=== PATIENT | male | born 1995 | race Caucasian/White ===

== ENCOUNTER 2020-08-30 22:33 | Emergency (ER) | payer SELFPAY ==
[2020-08-30 22:41] VITALS: BP 141/93; PULSE 104; RESP 18; TEMP 36.7; O2SAT 97; BMI 27.2
--- NOTE | 2020-08-30 23:06 | W.ED.PSYCH ---
HPI - Psych General: Chief Complaint: Psychiatric Symptoms Stated Complaint: si Time Seen by Provider: 08/30/20 22:34 Source: patient Mode of arrival: ambulatory Limitations: no limitations History of Present Illness: HPI Narrative: A 5-year-old male has a history of schizophrenia supposed to be on Abilify. He states he quit taking his medicine months ago and is having increasing hallucinations. He states he just been feeling extremely paranoid and is having auditory hallucinations believe people are out to get him. He denies any suicidal homicidal ideations. He voluntarily wants to be admitted. Associated symptoms: Reports auditory hallucinations Review of Systems Const: Denies: fever(s), chills, body aches or change in appetite Eyes: Denies: blurry vision or eye discomfort ENMT: Denies: throat pain or dental pain Card: Denies: chest pain Resp: Denies: dyspnea GI: Denies: abdominal pain, nausea, vomiting or diarrhea : Denies: dysuria Musc: Denies: neck pain or back pain Skin/Breast: Denies: rash Neuro: Denies: headache(s) Psych: Reports: auditory hallucinations Brian/Lymph: Denies: easy bruising All/Imm: Denies: urticaria Physical Exam Const: COMMON NORMALS: no acute distress, patient oriented x3 and healthy appearing HENMT: COMMON NORMALS: normocephalic and atraumatic HEAD & SCALP: normocephalic and atraumatic Eye: COMMON NORMALS: Equal, round and reactive pupils present and EOMs intact bilaterally PUPIL: Yes Equal, round and reactive pupils present Neck/C-Spine: COMMON NORMALS: full ROM and supple Chest: COMMONS NORMALS: normal inspection of the chest and normal palpation of entire chest wall Resp: COMMON NORMALS: normal respiratory effort, No retractions, No use of accessory muscles and clear to auscultation bilaterally AUSCULTATION: clear to auscultation bilaterally Cardio: COMMON NORMALS: regular rate, regular rhythm and No murmurs present (Cardio) RATE: regular rate RHYTHM: regular rhythm GI: COMMON NORMALS: Normal to inspection, nondistended, normoactive bowel sounds present, Soft to palpation, non-tender and no masses PALPATION: Yes Soft to palpation Extremity: COMMON NORMALS: normal to inspection and full ROM Neuro: COMMON NORMALS: patient oriented x3, moves all extremities and no focal motor deficits Psych: COMMON NORMALS: mental status grossly normal and cooperative MOOD & AFFECT: Yes anxious THOUGHT CONTENT: Yes Hallucination(s) present Skin: COMMON NORMALS: no rashes or lesions noted and no wounds GENERAL SKIN EXAM: no rashes or lesions noted Course Vital Signs: Vital signs: Vital Signs Temperature 98.0 F 08/30/20 22:41 Pulse Rate 93 08/30/20 23:14 Respiratory Rate 16 08/30/20 23:14 Blood Pressure 116/94 08/30/20 23:14 Pulse Oximetry 97 08/30/20 23:14 MDM - Psych MDM Narrative: Medical decision making narrative: Patient presents with hallucinations. I spoke to psychiatrist Dr. Tabor and will admit. Patient's voluntary and is medically cleared. He has been stable while here. Lab Data: Labs: Lab Results 08/30/20 08/30/20 08/30/20 Range/Units 23:00 23:00 23:15 WBC 11.2 H (4.0-10.0) 10^3/ uL RBC 5.16 (4.1-5.3) 10^6/u L Hgb 15.3 (11.7-16.6) g/dL Hct 46.6 (42.0-52.0) % MCV 90.3 (80-94) fL MCH 29.7 (28.0-34.0) pg MCHC 32.8 (30.0-36.0) g/dL RDW 12.3 (12.1-15.1) % Plt Count 223 (130-400) 10^3/c mm MPV 10.3 (7.4-10.4) fL Neut % (Auto) 75.4 % Lymph % (Auto) 17.9 % Teton % (Auto) 5.3 % Eos % (Auto) 0.7 % Baso % (Auto) 0.4 % Neut # (Auto) 8.48 H (1.8-7.7) 10^3/u L Lymph # (Auto) 2.0 (0.8-4.8) 10^3/u L Teton # (Auto) 0.6 (0.2-0.9) 10^3/u L Eos # (Auto) 0.1 (0.0-0.8) 10^3/u L Baso # (Auto) 0.0 (0.0-0.1) 10^3/u L Nucleated RBC % (a uto) 0 % Nucleated RBCs # 0.0 /100WBC Sodium 142 (136-145) mmol/L Potassium 3.6 (3.5-5.1) mmol/L Chloride 104 (98-107) mmol/L Carbon Dioxide 28 (22-29) mmol/L Anion Gap 13.6 (5-19) BUN 14 (6-20) mg/dL Creatinine 0.8 (0.7-1.2) mg/dL GFR Calculation 116.0 (90-130) mL/min Glucose 98 (65-115) mg/dL Calculated Osmolal ity 294 (285-295) mOsm/k g Calcium 9.2 (8.5-10.5) mg/dL Total Bilirubin 0.3 (0.15-1.2) mg/dL AST 14 (0-40) U/L ALT 17 (0-41) U/L Alkaline Phosphata se 63 (40-130) IU/L Total Protein 7.0 (6.6-8.7) g/dL Albumin 4.4 (3.5-5.2) g/dL Globulin 2.6 (1.3-4.6) g/dL Salicylates < 0.3 L (3-10) mg/dL Urine Opiates Scre en Negative (Negative) ng/mL Acetaminophen < 5.0 L (10-30) ug/mL Ur Barbiturates Sc reen Negative (Negative) ng/mL Ur Phencyclidine S crn Negative (Negative) ng/mL Ur Amphetamines Sc reen Positive H (Negative) ng/mL U Benzodiazepines Scrn Positive H (Negative) ng/mL Urine Cocaine Scre en Negative (Negative) ng/mL U Marijuana (THC) Screen Positive H (Negative) ng/mL Ethyl Alcohol < 10 (0-10) mg/dL Discharge Plan Discharge Patient Disposition: Admitted As Inpatient Admit Provider: Tevin Tabor Clinical Impression: Chronic schizophrenia, Hallucinations Condition: Stable Coding Level of Care Code ED Box Machine Operator for Salomon Fwd Exam Comprehensive
[2020-08-30] MEDS: LORazepam 2 mg Tablet PO (23:11)
[2020-08-30 23:14] VITALS: BP 116/94; PULSE 93; RESP 16; O2SAT 97
[2020-08-30 23:14] LABS: Basophils % 0.4 %; Eosinophils # 0.1 10^3/uL (0.0-0.8); Eosinophils % 0.7 %; Hematocrit 46.6 % (42.0-52.0); Hemoglobin 15.3 g/dL (11.7-16.6); Lymphocytes % 17.9 %; Mean Corpuscular HGB Conc 32.8 g/dL (30.0-36.0); Mean Corpuscular Hemoglobin 29.7 pg (28.0-34.0); Mean Corpuscular Volume 90.3 fL (80-94); Mean Platelet Volume 10.3 fL (7.4-10.4); Monocytes # 0.6 10^3/uL (0.2-0.9); Monocytes % 5.3 %; Neutrophils # 8.48 10^3/uL (1.8-7.7); Neutrophils % 75.4 %; Nucleated Red Blood Cells % 0 %; Platelet Count 223 10^3/cmm (130-400); Red Blood Count 5.16 10^6/uL (4.1-5.3); Red Cell Distribution Width 12.3 % (12.1-15.1); White Blood Count 11.2 10^3/uL (4.0-10.0)
[2020-08-30 23:33] LABS: Amphetamines Screen Urine Positive (Negative); Barbiturates Screen Urine Negative (Negative); Benzodiazepines Screen Urine Positive (Negative); Cocaine Screen Urine Negative (Negative); Opiate Screen Urine Negative (Negative); PCP Screen Urine Negative (Negative); THC Screen Urine Positive (Negative)
[2020-08-30 23:39] LABS: Alanine Aminotransferase 17 U/L (0-41); Albumin Level 4.4 g/dL (3.5-5.2); Alkaline Phosphatase 63 IU/L (40-130); Anion Gap 13.6 (5-19); Aspartate Amino Transferase 14 U/L (0-40); Blood Urea Nitrogen 14 mg/dL (6-20); Calcium 9.2 mg/dL (8.5-10.5); Carbon Dioxide 28 mmol/L (22-29); Chloride 104 mmol/L (98-107); Globulin 2.6 g/dL (1.3-4.6); Glucose 98 mg/dL (65-115); Osmolality Calculated 294 mOsm/kg (285-295); Potassium 3.6 mmol/L (3.5-5.1); Sodium 142 mmol/L (136-145); Total Bilirubin 0.3 mg/dL (0.15-1.2)
[2020-08-30 23:40] LABS: Acetaminophen < 5.0 ug/mL (10-30); Alcohol Level < 10 mg/dL (0-10); Salicylate < 0.3 mg/dL (3-10)
[2020-08-31] MEDS: LORazepam 2 mg Tablet PO (00:34)
--- NOTE | 2020-08-31 02:33 | PC.NURSE ---
pt refusing IM meds stating he does not do needles . Dr notified. order changed to PO meds
--- NOTE | 2020-08-31 08:02 | PC.NURSE ---
VICKIE: Was notified around 0300 that when security was taking the patient to the unit for admission he got up and ran when they got to the doors outside of [facility] saying that he did not want to stay. The patient went out to the parking lot of the ER. When rounding found the patient sitting in a wheelchair just outside the ER entrance doors.
== END 2020-08-31 00:23 | disposition home or self-care (01) ==
PROVIDERS: Emergency Provider Emergency Medicine
DX: F20.9 Schizophrenia, unspecified (principal); R44.3 Hallucinations, unspecified
CPT/HCPCS: 80053; 80306; 80307; 85025; 96372; 99284; J1630; J2060

== ENCOUNTER 2020-08-31 07:55 | Inpatient (IN) | payer SELFPAY ==
[2020-08-31 07:55] VITALS: BP 118/100; PULSE 117; RESP 16; TEMP 36.8; O2SAT 97; BMI 27.9
--- NOTE | 2020-08-31 08:22 | ED_ITS ---
HPI - Psych General: Chief Complaint: Psychiatric Symptoms Stated Complaint: PSYCH EVAL Time Seen by Provider: 08/31/20 07:56 History of Present Illness: HPI Narrative: 25-year-old male returns to the emergency room he was here earlier today with paranoid schizophrenia he had agreed to be admitted on as a voluntary and ended up leaving AMA. PD made contact with him this morning he was still expressing paranoid delusions prosecutorial thoughts. He was brought in for evaluation. He is guarded as far as answering questions. He stated he needed to get a hold of the [facility] or the FBI to make sure his family is okay. He states he is a target of organized crime. When I asked him to give me him more specifics about what is going on he says he cannot discuss it with me. He states that last night staff told him that we can give him an overload of acid. He does admit to not having taken his regular antipsychotic medications regularly but is willing to restart them. On his lab work last night he tested positive for marijuana methamphetamines. MD complaint: other (Acute paranoid psychosis) Onset (ago): hour(s) Duration: constant History of same: Yes Relieving factors: medication Exacerbating factors: drug use Context: recent drug abuse and not taking psychiatric medications Associated psychiatric symptoms: racing thoughts and delusions Associated symptoms: Reports auditory hallucinations, delusions and racing thoughts; Deny visual hallucinations, depression, homicidal ideation or suicidal ideation Treatments prior to arrival: physical restraints (Patient arrives in handcuffs with the police department.) Review of Systems Const: Denies: fever(s), chills, body aches, change in appetite, fatigue or malaise Card: Denies: chest pain, edema, dyspnea on exertion or orthopnea Resp: Denies: dyspnea, productive cough or non-productive cough GI: Denies: abdominal pain, nausea, vomiting, hematemesis, coffee ground emesis, diarrhea, constipation, bloating, hematochezia or melena : Denies: flank pain, dysuria, urinary frequency or urinary urgency Psych: Reports: auditory hallucinations; Denies: depression, visual hallucinations, suicidal ideation or homicidal ideation Physical Exam Const: COMMON NORMALS: no acute distress GENERAL APPEARANCE: comfortable ORIENTATION/CONSCIOUSNESS: Yes awake HENMT: COMMON NORMALS: hearing grossly normal bilaterally Eye: COMMON NORMALS: Equal, round and reactive pupils present, EOMs intact arsh aterally, conjunctivae normal and no scleral icterus CONJUNCTIVA: Yes conjunctivae normal PUPIL: Yes Equal, round and reactive pupils present Neck/C-Spine: COMMON NORMALS: no JVD Resp: COMMON NORMALS: normal respiratory effort, No retractions, No use of accessory muscles and clear to auscultation bilaterally AUSCULTATION: clear to auscultation bilaterally Cardio: COMMON NORMALS: no JVD, regular rate, regular rhythm and No murmurs present (Cardio) RATE: regular rate RHYTHM: regular rhythm Psych: THOUGHT CONTENT: Yes delusions Course Vital Signs: Vital signs: Vital Signs Temperature 98.2 F 08/31/20 07:55 Pulse Rate 117 H 08/31/20 07:55 Respiratory Rate 16 08/31/20 07:55 Blood Pressure 118/100 08/31/20 07:55 Pulse Oximetry 97 08/31/20 07:55 MDM - Psych MDM Narrative: Medical decision making narrative: Patient still having paranoid schizophrenic thoughts with delusional per sectorial thoughts. He has a known history of's schizophrenia and is no longer taking his medications. In his current state he represents a danger to himself. I discussed with Dr. Tabor. He recently had lab work done just a few hours ago there is no need for repeating it at this time we will go ahead and admit him place him on a 96- hour hold Dr. Tabor concurs orders have been written. Discharge Plan Discharge Patient Disposition: Admitted As Inpatient Admit Provider: Tevin Tabor Clinical Impression: Acute psychosis, Drug-induced psychotic disorder, Chronic schizophrenia Condition: Stable Coding Level of Care Code ED Furnace Utility Operator for Salomon Swanson
[2020-08-31] MEDS: LORazepam 2 mg Tablet PO ×2 (08:37→09:39)
[2020-08-31 08:50] VITALS: BMI 27.9
[2020-08-31 09:09] VITALS: BP 138/86; PULSE 106; RESP 18; TEMP 37.1; O2SAT 97
--- NOTE | 2020-08-31 09:35 | PC.NURSE ---
Patient is a pleasant 25 year old male that presents to the [facility] unit as a direct admit from the emergency department. Patient was brought in by local law enforcement. Patient states that he was kidnapped by local police departments and that he has people after him and that his family is in danger. In the emergency department patient was positive meth, amph, along with THC. Patient has been pleasant during admission process and has requested a phone call. No skin issues noted. Patient denies any past mental health problems along with any mental health inpatient stays.
[2020-08-31 14:00] VITALS: RESP 16
--- NOTE | 2020-08-31 20:00 | PC.NURSE ---
bEHAVIOR PT STAYED IN HIS ROOM, COOPERATIVE WITH STAFF, V/S ARE WNL, DENIES SI/HI-HOWEVER, IS PARANOID, STATES, PEOPLE ARE GOING TO GET ME. pT DENIES PAIN, ATE A SMALL SNACK, AND RETURNED TO SLEEP. AVOIDS TOUCH, ANSWERS QUESTIONS FOR NURSE BUT DOES NOT VOLUNTEER ANY ADDITONAL INFORMATION AT THIS TIME. pT STATED, JODY BEEN KIDNAPPED, THE [place]ARTEL, [facility], SOMEONE ALREADY HAS ME. REORIENTED PT TO TIME AND SITUATION, HE REMAINED CALM, SMILING.
[2020-08-31 20:20] VITALS: RESP 15
[2020-09-01 06:00] VITALS: RESP 16
--- NOTE | 2020-09-01 07:52 | PM.NHP ---
Providers/Chief Complaint Admitting Physician: Tevin Tabor MD Chief Complaint: PSYCH EVAL HPI [facility] History of Present Illness Reilly Guthrie is a 25 year old male who presented to the emergency department with the following report: Chief Complaint: Psychiatric Symptoms Stated Complaint: PSYCH EVAL Time Seen by Provider: 08/31/20 07:56 History of Present Illness: HPI Narrative: 25-year-old male returns to the emergency room he was here earlier today with paranoid schizophrenia he had agreed to be admitted on as a voluntary and ended up leaving A. PD made contact with him this morning he was still expressing paranoid delusions prosecutorial thoughts. He was brought in for evaluation. He is guarded as far as answering questions. He stated he needed to get a hold of the [facility] or the FBI to make sure his family is okay. He states he is a target of organized crime. When I asked him to give me him more specifics about what is going on he says he cannot discuss it with me. He states that last night staff told him that we can give him an overload of acid. He does admit to not having taken his regular antipsychotic medications regularly but is willing to restart them. On his lab work last night he tested positive for marijuana methamphetamines. complaint: other (Acute paranoid psychosis) Onset (ago): hour(s) Duration: constant History of same: Yes Relieving factors: medication Exacerbating factors: drug use Context: recent drug abuse and not taking psychiatric medications Associated psychiatric symptoms: racing thoughts and delusions Associated symptoms: Reports auditory hallucinations, delusions and racing thoughts; Deny visual hallucinations, depression, homicidal ideation or suicidal ideation Treatments prior to arrival: physical restraints (Patient arrives in handcuffs with the police department. He was admitted to the neuropsychiatric unit for definitive treatment of those issues. Reilly presents today reporting that he was in inpatient psychiatric facilities a few times a kid and the last time was a couple years ago. He reports he did do some outpatient services and another place and was very upset recently. He reports he smokes a pack of cigarettes a day and at times has too much alcohol and other times does not drink at all. He reports he has had marijuana for a while denies any other illicit drug use reports he is prescribed benzodiazepines. Denies going to rehab or having a DUI. He reports he is never tried to kill himself. He reports that he is here because it makes other people feel safe by making him feel that he and they are safe. He then talked about how they would be safe was about fear he would expose their secrets and then when asked to be clear about that he reports that he should avoid speaking about it. He expressed concerns about how this telegraphic typewriter mechanic would interpret what he had to say and he was able to articulate that one might think that what he has to say is paranoid. We discussed his medication and he was very focused on getting his Xanax and we agreed to getting that would avoid him having any withdrawal symptoms. He reports that he understood that we did not have Adderall and he could not at this point get somebody to bring it in. We discussed the risk benefits and alternatives of increasing his Abilify to 50 mg and he understood agreed proceed as happened in his note. Psychiatric history: As above Substance abuse history: As above. Family history: Patient denies mental health or addiction issues on either side of the family and denies suicide attempts or completions in the family. Developmental history: There were no problems with the , or delivery, learned to walk and talk and met developmental milestones on time, and denies need for speech therapy, learning support, emotional support or special education classes. He later stated however when he was in school at some point he did get some remedial reading classes. Psychosocial history: He reports that his mother and father were together when he was born and that he has 2 older sisters that are a product of that same union. He reports that neither his mother or father had any other children. But he had some very angry thoughts to express about his father and says he has not spoken to him in 10 years and does not know if his parents are still together but they have had some on and off periods. Reports he does not respect the person that his father is. He reports that his childhood was fairly normal and he denies any emotional, physical or sexual abuse. Highest grade he achieved was the ninth grade but he reports he got his GED. He reports he is a heterosexual with his longest relationship being about 3 years. He is never been , is a 7-year-old daughter who is in [place] with her mother, is never in the and was a Temple. 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 He currently lives in a trailer. Legal history: He reports being [facility]. Medical history: Please see ED note for full details but he denies any issues. Meds [facility] Home Medications Medication Instructions Recorded Confirmed Last Taken Type alprazolam [Xanax] 1 mg PO BID PRN 08/31/20 09/01/20 Unknown History aripiprazole [Abilify] 10 mg PO DAILY 08/31/20 08/31/20 Unknown History dextroamphetamine-amphetamine 30 mg PO BID 08/31/20 08/31/20 Unknown History [Adderall] Allergies Allergy/AdvReac Type Severity Reaction Status Date / Time No Known Allergies Allergy Verified 08/31/20 00:20 Mental Status Exam MSE Comments: This is an overweight versus obese white male with hospital scrubs on with adequate grooming and no eye contact. No abnormal movements except for psychomotor retardation. Semicooperative with exam in mild distress. Speech was normal rate and volume. Mood described as a lot affect somewhat subdued. Thought process organized. Thought content: Patient denied suicidal or homicidal ideation, there were no delusions reported but paranoia and persecutory thinking present, he denied auditory visual hallucinations. Attention concentration appeared intact and memory was unreliable but none were formally tested. He is alert and oriented times person and place. Insight and judgment are limited to impaired, impulse control is impaired. Vitals/I&O/Wt Last Vital Signs Temp 98.7 F 08/31/20 09:09 Pulse 106 H 08/31/20 09:09 Resp 16 09/01/20 06:00 BP 138/86 08/31/20 09:09 Pulse Ox 97 08/31/20 09:09 Weight last 48 hrs Weight 88.451 kg Weight 88.451 kg A&P Assessment and plan (1) Chronic schizophrenia: Status: Acute (2) Hallucinations: Status: Acute (3) Acute psychosis: Status: Acute (4) Drug-induced psychotic disorder: Status: Acute Additional A&P Information This is a 25-year-old white male who presents with active psychosis and active drug use but secondary to reported prescription of amphetamines it is unclear whether methamphetamines or even overuse of his current amphetamines are playing a role in his psychosis who presents with significant paranoia but open to medication changes. 1. Continue current medication. Increase Abilify to 15 mg p.o. every morning and would not advise continuing Adderall even after discharge especially lacking clarity as to what is driving the psychosis. 2. Continue every 15 minute checks for safety. 3. Encourage individual, group and milieu therapies. 4. Encourage sober living treatment after discharge at the highest level of care to which he is willing to commit. Involuntary Hold Information 96 Hour Hold: 96 Hour Involuntary Admission: Yes 96 Hour Hold Ending Date: 09/06/20 96 Hour Hold Ending Time: 08:15 Attestations [facility] Medical Necessity Statement*: Inpatient hospitalization is medically necessary and the clinically appropriate intervention at this time. We will monitor medications and make changes as indicated. Patient will be in the hospital for over two midnights. Likely length of stay 3 to 5 days. Coding Level of Care Code Acute Feltmaker And Weigher for Salomon Swanson Diagnoses Chronic schizophrenia F20.9 Hallucinations R44.3 Acute psychosis F23 Drug-induced psychotic disorder F19.959
[2020-09-01 14:00] VITALS: BP 138/86; PULSE 106; RESP 16; TEMP 37.1; O2SAT 97
[2020-09-01] MEDS: ARIPiprazole 10 mg Tablet PO (14:53)
[2020-09-01 22:00] VITALS: RESP 16
[2020-09-02 06:00] VITALS: RESP 15
[2020-09-02] MEDS: ARIPiprazole 10 mg Tablet 15 MG PO (08:33)
--- NOTE | 2020-09-02 11:29 | PC.NURSE ---
PRN XANAX Patient requested medication for anxiety, given 1 mg Xanax prn.
[2020-09-02 13:59] VITALS: BP 118/76; PULSE 96; RESP 14; TEMP 36.7; O2SAT 96
--- NOTE | 2020-09-02 17:08 | PM.NPN ---
Subjective [facility] Subjective: Interval history: Reilly presents today continuing to have paranoia and frustration with being in the hospital. We were able to discuss with the treatment team will be here tomorrow and will be able to utilize his daily once this point. He suggested continued frustration with his family and people involved in a plan to far away from here, when he eventually is discharged. He reports the increase in the Abilify is Brooklynn Jiang. Continues to spend most of time in his room sleeping as much as he can he says. Mental Status Exam MSE Comments: This is an overweight versus obese white male with hospital scrubs on with adequate grooming and no eye contact. No abnormal movements except for psychomotor retardation. Semicooperative with exam in mild distress. Speech was normal rate and volume. Mood described as fine, affect somewhat subdued and irritable but he denies irritability. Thought process organized. Thought content: Patient denied suicidal or homicidal ideation, there were no delusions reported but paranoia and persecutory thinking present, he denied auditory visual hallucinations. Attention concentration appeared intact and memory was unreliable but none were formally tested. He is alert and oriented times person and place. Insight and judgment are limited to impaired, impulse control is impaired. Vitals/I&O/Wt Last Vital Signs Temp 98.0 F 09/02/20 13:59 Pulse 96 09/02/20 13:59 Resp 14 09/02/20 13:59 BP 118/76 09/02/20 13:59 Pulse Ox 96 09/02/20 13:59 Weight last 48 hrs Weight 88.451 kg A&P Additional A&P Information (1) Chronic schizophrenia: (2) Hallucinations: (3) Acute psychosis: (4) Drug-induced psychotic disorder: Additional A&P Information This is a 25-year-old white male who presents with active psychosis and active drug use but secondary to reported prescription of amphetamines it is unclear whether methamphetamines or even overuse of his current amphetamines are playing a role in his psychosis who presents with significant paranoia but open to medication changes. 1. Continue current medication. 2. Continue every 15 minute checks for safety. 3. Encourage individual, group and milieu therapies. 4. Encourage sober living treatment after discharge at the highest level of care to which he is willing to commit. Involuntary Hold Information 96 Hour Hold: 96 Hour Involuntary Admission: Yes 96 Hour Hold Ending Date: 09/06/20 96 Hour Hold Ending Time: 08:15 Attestations [facility] Medical Necessity Statement*: Inpatient hospitalization is medically necessary and the clinically appropriate intervention at this time. We will monitor medications and make changes as indicated. Likely length of stay 3 to 5 days. Coding Level of Care Code Acute Kindergarten Tutor for Salomon Swanson
[2020-09-02 21:04] VITALS: BP 114/82; PULSE 84; RESP 20; TEMP 36.6; O2SAT 98
[2020-09-03 06:00] VITALS: BP 108/74; PULSE 80; RESP 19; TEMP 36.7; O2SAT 96
[2020-09-03] MEDS: ARIPiprazole 10 mg Tablet 15 MG PO (08:25)
--- NOTE | 2020-09-03 11:22 | PC.NURSE ---
Addendum entered by Maude Zamora LPN 09/03/20 16:27: prn med effective no further c/o anxiety Original Note: PRN XANAX 1 MG GIVEN PO PER PT C/O STATED ANXIETY. WILL CONT TO MONITOR.
[2020-09-03 14:00] VITALS: BP 108/73; PULSE 95; RESP 16; TEMP 36.9; O2SAT 96
--- NOTE | 2020-09-03 15:24 | P.PN_ITS ---
Subjective NPU Subjective: Interval history: Presented today for the first time with less irritability noted on the initiation. He was less focused on his plan and need to be discharged to get as far away from his place as possible. He continued to endorse a plan to ultimately have more independence but was talking now more about wanting to leave the hospital and go home initially which he reports is where his uncle currently lives. He talked about working with the social work/treatment team to make sure he has appropriate follow-up and exploring discharge over the next 48 hours if he continues to improve. Mental Status Exam MSE Comments: This is an overweight versus obese white male with hospital scrubs on with adequate grooming and no eye contact. No abnormal movements except for mild psychomotor retardation. More cooperative with exam in no acute distress. Speech was normal rate and volume. Mood described as better, affect somewhat subdued but congruent. Thought process organized. Thought content: Patient denied suicidal or homicidal ideation, there were no delusions reported but paranoia and persecutory thinking present, but improving, he denied auditory visual hallucinations. Attention concentration appeared intact and memory was unreliable but none were formally tested. He is alert and oriented times person and place. Insight and judgment are limited, but improving, impulse control is improving. Vitals/I&O/Wt Last Vital Signs Temp 98.4 F 09/03/20 14:00 Pulse 95 09/03/20 14:00 Resp 16 09/03/20 14:00 BP 108/73 09/03/20 14:00 Pulse Ox 96 09/03/20 14:00 A&P Additional A&P Information (1) Chronic schizophrenia: (2) Hallucinations: (3) Acute psychosis: (4) Drug-induced psychotic disorder: Additional A&P Information This is a 25-year-old white male who presents with active psychosis and active drug use but secondary to reported prescription of amphetamines it is unclear whether methamphetamines or even overuse of his current amphetamines are playing a role in his psychosis who presents with significant paranoia but open to medication changes. 1. Continue current medication. 2. Continue every 15 minute checks for safety. 3. Encourage individual, group and milieu therapies. 4. Encourage sober living treatment after discharge at the highest level of care to which he is willing to commit. Involuntary Hold Information 96 Hour Hold: 96 Hour Involuntary Admission: Yes 96 Hour Hold Ending Date: 09/06/20 96 Hour Hold Ending Time: 08:15 Attestations NPU Medical Necessity Statement*: Inpatient hospitalization is medically necessary and the clinically appropriate intervention at this time. We will monitor medications and make changes as indicated. Likely length of stay 2-4 days. Coding Level of Care Code Acute Cooler Supervisor for Salomon Swanson
[2020-09-03 20:14] VITALS: BP 107/73; PULSE 95; RESP 18; TEMP 36.5; O2SAT 96
[2020-09-04 05:57] VITALS: BP 118/78; PULSE 77; RESP 18; TEMP 36.5; O2SAT 97
[2020-09-04] MEDS: ARIPiprazole 10 mg Tablet 15 MG PO (08:32)
[2020-09-04 14:00] VITALS: BP 123/74; PULSE 84; RESP 18; TEMP 37; O2SAT 98
--- NOTE | 2020-09-04 16:01 | PM.NPN ---
Subjective NPU Subjective: Interval history: Reilly is doing better he reports starting to have more reasonable conceptualization's about what is next. Baseline paranoia still reported but he is at a level of questioning some validity and identifying that may be taking the medication might have impact on his outcomes. We discussed the possibility of the long-acting and he were to flounder again he would be able to except that that is a necessity. We agreed that we would work on likely discharge tomorrow. Mental Status Exam MSE Comments: This is an overweight versus obese white male with hospital scrubs on with adequate grooming and no eye contact. No abnormal movements except for mild psychomotor retardation. More cooperative with exam in no acute distress. Speech was normal rate and volume. Mood described as better, affect somewhat subdued but congruent. Thought process organized. Thought content: Patient denied suicidal or homicidal ideation, there were no delusions reported but paranoia and persecutory thinking present, but improving, he denied auditory visual hallucinations. Attention concentration appeared intact and memory was unreliable but none were formally tested. He is alert and oriented times person and place. Insight and judgment are limited, but improving, impulse control is improving. Vitals/I&O/Wt Last Vital Signs Temp 97.7 F 09/04/20 21:09 Pulse 111 H 09/04/20 21:09 Resp 22 H 09/04/20 21:09 BP 108/82 09/04/20 21:09 Pulse Ox 97 09/04/20 21:09 A&P Additional A&P Information (1) Chronic schizophrenia: (2) Hallucinations: (3) Acute psychosis: (4) Drug-induced psychotic disorder: Additional A&P Information This is a 25-year-old white male who presents with active psychosis and active drug use but secondary to reported prescription of amphetamines it is unclear whether methamphetamines or even overuse of his current amphetamines are playing a role in his psychosis who presents with significant paranoia but open to medication changes. 1. Continue current medication. 2. Continue every 15 minute checks for safety. 3. Encourage individual, group and milieu therapies. 4. Encourage sober living treatment after discharge at the highest level of care to which he is willing to commit. Involuntary Hold Information 96 Hour Hold: 96 Hour Involuntary Admission: Yes 96 Hour Hold Ending Date: 09/06/20 96 Hour Hold Ending Time: 08:15 Attestations NPU Medical Necessity Statement*: Inpatient hospitalization is medically necessary and the clinically appropriate intervention at this time. We will monitor medications and make changes as indicated. Likely length of stay 1-3 days. Coding Level of Care Code Acute Oil Truck Driver for Salomon Swanson
--- NOTE | 2020-09-04 16:19 | PC.NURSE ---
PRN XANAX 1 MG GIVEN PO PER PT C/O STATED ANXIETY. PT HAS BEEN ISOLATING TO ROOM, WITHDRAWN.
[2020-09-04 21:09] VITALS: BP 108/82; PULSE 111; RESP 22; TEMP 36.5; O2SAT 97
[2020-09-05 06:00] VITALS: BP 122/70; PULSE 74; RESP 20; TEMP 36.5; O2SAT 97
[2020-09-05] MEDS: ARIPiprazole 10 mg Tablet 15 MG PO (09:09)
--- NOTE | 2020-09-05 11:18 | PM.NDC ---
Diagnoses at Discharge Discharge Diagnosis (1) Chronic schizophrenia: Status: Acute (2) Hallucinations: Status: Inactive (3) Acute psychosis: Status: Resolved (4) Drug-induced psychotic disorder: Status: Acute Reason for Visit Reason for Visit: PSYCH EVAL Brief History: History of Present Illness Reilly Guthrie is a 25 year old male who presented to the emergency department with the following report: Chief Complaint: Psychiatric Symptoms Stated Complaint: PSYCH EVAL Time Seen by Provider: 08/31/20 07:56 History of Present Illness: HPI Narrative: 25-year-old male returns to the emergency room he was here earlier today with paranoid schizophrenia he had agreed to be admitted on as a voluntary and ended up leaving AMA. PD made contact with him this morning he was still expressing paranoid delusions prosecutorial thoughts. He was brought in for evaluation. He is guarded as far as answering questions. He stated he needed to get a hold of the [employer] or the FBI to make sure his family is okay. He states he is a target of organized crime. When I asked him to give me him more specifics about what is going on he says he cannot discuss it with me. He states that last night staff told him that we can give him an overload of acid. He does admit to not having taken his regular antipsychotic medications regularly but is willing to restart them. On his lab work last night he tested positive for marijuana methamphetamines. complaint: other (Acute paranoid psychosis) Onset (ago): hour(s) Duration: constant History of same: Yes Relieving factors: medication Exacerbating factors: drug use Context: recent drug abuse and not taking psychiatric medications Associated psychiatric symptoms: racing thoughts and delusions Associated symptoms: Reports auditory hallucinations, delusions and racing thoughts; Deny visual hallucinations, depression, homicidal ideation or suicidal ideation Treatments prior to arrival: physical restraints (Patient arrives in handcuffs with the police department. He was admitted to the neuropsychiatric unit for definitive treatment of those issues. Reilly presents today reporting that he was in inpatient psychiatric facilities a few times a kid and the last time was a couple years ago. He reports he did do some outpatient services and another place and was very upset recently. He reports he smokes a pack of cigarettes a day and at times has too much alcohol and other times does not drink at all. He reports he has had marijuana for a while denies any other illicit drug use reports he is prescribed benzodiazepines. Denies going to rehab or having a DUI. He reports he is never tried to kill himself. He reports that he is here because it makes other people feel safe by making him feel that he and they are safe. He then talked about how they would be safe was about fear he would expose their secrets and then when asked to be clear about that he reports that he should avoid speaking about it. He expressed concerns about how this customs entry writer would interpret what he had to say and he was able to articulate that one might think that what he has to say is paranoid. We discussed his medication and he was very focused on getting his Xanax and we agreed to getting that would avoid him having any withdrawal symptoms. He reports that he understood that we did not have Adderall and he could not at this point get somebody to bring it in. We discussed the risk benefits and alternatives of increasing his Abilify to 15 mg and he understood agreed proceed as happened in his note. Psychiatric history: As above Substance abuse history: As above. Family history: Patient denies mental health or addiction issues on either side of the family and denies suicide attempts or completions in the family. Developmental history: There were no problems with the , or delivery, learned to walk and talk and met developmental milestones on time, and denies need for speech therapy, learning support, emotional support or special education classes. He later stated however when he was in school at some point he did get some remedial reading classes. Psychosocial history: He reports that his mother and father were together when he was born and that he has 2 older sisters that are a product of that same union. He reports that neither his mother or father had any other children. But he had some very angry thoughts to express about his father and says he has not spoken to him in 10 years and does not know if his parents are still together but they have had some on and off periods. Reports he does not respect the person that his father is. He reports that his childhood was fairly normal and he denies any emotional, physical or sexual abuse. Highest grade he achieved was the ninth grade but he reports he got his GED. He reports he is a heterosexual with his longest relationship being about 3 years. He is never been , is a 7-year-old daughter who is in [place] with her mother, is never in the and was a [employer]. 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 He currently lives in a trailer. Legal history: He reports being in senior living 2 times. Medical history: Please see ED note for full details but he denies any issues. Hospital Course Hospital Course Reilly presented to the emergency department with significant paranoia, resistant to admission was ultimately admitted on a 96-hour hold. He was admitted to the neuropsychiatric unit for definitive treatment of those issues. On the unit he slowly acclimated to the individual, group therapies provided. He was open to increasing his Abilify to 50 mg p.o. every morning and we held his Adderall. He showed modest improvement from his changes and endorsed the possibility that he may need to discontinue the Adderall. He was able to contract for safety prior to discharge. During the hospitalization, patient had routine laboratory studies which were within normal limits except for few outliers. Additionally there was a general medical evaluation which was also within normal limits and revealed no new acute processes. Discharge Summary: At the time of discharge, lethality was denied and psychosis was resolving. Mood and anxiety were well managed. Patient endorsed a plan to avoid all drugs of abuse and follow-up with the aftercare recommendations of the treatment team. Patient was evaluated and deemed to be absent credible lethality, and had achieved the maximum benefit from an inpatient hospitalization, so was discharged. Involuntary Hold Information 96 Hour Hold: 96 Hour Involuntary Admission: Yes 96 Hour Hold Ending Date: 09/06/20 96 Hour Hold Ending Time: 08:15 Mental Status Exam MSE Comments: This is an overweight versus obese white male with hospital scrubs on with adequate grooming and no eye contact. No abnormal movements except for mild psychomotor retardation. More cooperative with exam in no acute distress. Speech was normal rate and volume. Mood described as better, affect somewhat subdued but congruent. Thought process organized. Thought content: Patient denied suicidal or homicidal ideation, there were no delusions reported but paranoia and persecutory thinking present, but improving, he denied auditory visual hallucinations. Attention concentration appeared intact and memory was unreliable but none were formally tested. He is alert and oriented times person and place. Insight and judgment are limited, but improving, impulse control is improving. Discharge Data Vitals: Last Vital Signs Temp 97.7 F 09/05/20 06:00 Pulse 74 06/23/21 06:00 Resp 20 H 09/05/20 06:00 BP 122/70 09/05/20 06:00 Pulse Ox 97 09/05/20 06:00 Discharge Plan Discharge Patient Disposition: Home Condition: Stable Prescriptions: New aripiprazole 10 mg Tablet 15 mg PO DAILY 30 Days Qty: 45 RF: 1 Continued Adderall 30 mg Tablet 30 mg PO BID RF: 0 alprazolam [Xanax] 2 mg Tablet 1 mg PO BID PRN (Reason: Anxiety) RF: 0 Discontinued aripiprazole [Abilify] 10 mg Tablet 10 mg PO DAILY RF: 0 Discharge Orders: Discharge Order (Routine); Ordered 09/05/20 Ordered By: Tevin Tabor Referrals: [facility] (Dr. Nina) [Other] - 09/25/20 4:30 pm Discharge Diet: Regular Discharge Activity: Resume usual activity Patient Instructions: Aripiprazole (By mouth), Schizophrenia (DC), Opioid Safety Discharge Attestations NPU Time Spent in Discharge Care*: less than 30 min Specific Discharge Activities: Specific discharge activities: educating patient, discussing with rn case management/social workers/dc planners, documenting/other paperwork and evaluating patient/reviewing data Coding Level of Care Code Acute Chg FW DC note Diagnoses Chronic schizophrenia F20.9 Hallucinations R44.3 Acute psychosis F23 Drug-induced psychotic disorder F19.953
[2020-09-05 11:46] VITALS: BP 122/70; PULSE 74; RESP 20; TEMP 36.5; O2SAT 97
== END 2020-09-05 11:57 | disposition home or self-care (01) | DRG 897 ==
LOC: ER 08:48 → NP 08:49
PROVIDERS: Admitting Provider Psychiatry & Neurology Psychiatry; Emergency Provider Family Medicine; Visit Provider Psychiatry & Neurology Psychiatry
DX: F15.951 Other stimulant use, unspecified with stimulant-induced psychotic disorder with hallucinations (principal); F20.0 Paranoid schizophrenia; F12.90 Cannabis use, unspecified, uncomplicated; F15.90 Other stimulant use, unspecified, uncomplicated; F17.210 Nicotine dependence, cigarettes, uncomplicated; Z91.14 Patient's other noncompliance with medication regimen
CPT/HCPCS: 99285

== ENCOUNTER 2020-09-26 23:29 | Emergency (ER) | payer SELFPAY ==
[2020-09-26 23:29] VITALS: BP 116/89; PULSE 104; RESP 16; TEMP 36.8; O2SAT 95; BMI 27.9
--- NOTE | 2020-09-26 23:38 | ED_ITS ---
HPI - Abdominal Pain General: Chief Complaint: Abdominal Pain Stated Complaint: ABD PAIN Time Seen by Provider: 09/26/20 23:29 Source: patient and EMS Mode of arrival: EMS Limitations: no limitations History of Present Illness: HPI narrative: 25-year-old male's been having right lower quadrant abdominal pain throughout the day. He states that it was severe in nature early and rated an 8 out of 10. He states he received daughter in route and is now pain-free. He states pain is worse with movement improved with rest. Denies any dysuria. Denies any radiation of his pain. Denies any vomiting diarrhea. Associated Symptoms: Denies chills, dysuria and fever(s) Review of Systems Const: Denies: fever(s), chills, body aches or change in appetite Eyes: Denies: blurry vision or eye discomfort ENMT: Denies: throat pain or dental pain Card: Denies: chest pain Resp: Denies: dyspnea GI: Reports: abdominal pain : Denies: dysuria Musc: Denies: neck pain or back pain Skin/Breast: Denies: rash Neuro: Denies: headache(s) Psych: Denies: depression Brian/Lymph: Denies: easy bruising All/Imm: Denies: urticaria Physical Exam Const: COMMON NORMALS: no acute distress, patient oriented x3 and healthy appearing HENMT: COMMON NORMALS: normocephalic and atraumatic HEAD & SCALP: normocephalic and atraumatic Eye: COMMON NORMALS: Equal, round and reactive pupils present and EOMs intact bilaterally PUPIL: Yes Equal, round and reactive pupils present Neck/C-Spine: COMMON NORMALS: full ROM and supple Chest: COMMONS NORMALS: normal inspection of the chest and normal palpation of entire chest wall Resp: COMMON NORMALS: normal respiratory effort, No retractions, No use of accessory muscles and clear to auscultation bilaterally AUSCULTATION: clear to auscultation bilaterally Cardio: COMMON NORMALS: regular rate, regular rhythm and No murmurs present (Cardio) RATE: regular rate RHYTHM: regular rhythm GI: COMMON NORMALS: Normal to inspection, nondistended, normoactive bowel sounds present, Soft to palpation, non-tender and no masses PALPATION: Yes Soft to palpation Extremity: COMMON NORMALS: normal to inspection and full ROM Neuro: COMMON NORMALS: patient oriented x3, moves all extremities and no focal motor deficits Psych: COMMON NORMALS: mental status grossly normal, Normal thought process present and cooperative THOUGHT PROCESS: Normal thought process present Skin: COMMON NORMALS: no rashes or lesions noted and no wounds GENERAL SKIN EXAM: no rashes or lesions noted Course Vital Signs: Vital signs: Vital Signs Temperature 98.2 F 09/26/20 23:29 Pulse Rate 106 H 09/27/20 00:55 Respiratory Rate 19 H 09/27/20 00:55 Blood Pressure 128/84 09/27/20 00:55 Pulse Oximetry 98 09/27/20 00:55 MDM - Abdominal Pain MDM Narrative: Medical decision making narrative: Patient presents here with nominal pain. His pain is been resolved here and his blood work and CT scan are all normal. Exam at discharge is benign. He is stable for discharge and is to follow-up PCP and return if worsening. Lab Data: Labs: Lab Results 09/26/20 09/26/20 09/27/20 Range/Units 23:39 23:39 01:04 WBC 11.2 H (4.0-10.0) 10^3/ uL RBC 4.93 (4.1-5.3) 10^6/u L Hgb 14.8 (11.7-16.6) g/dL Hct 44.7 (42.0-52.0) % MCV 90.7 (80-94) fL MCH 30.0 (28.0-34.0) pg MCHC 33.1 (30.0-36.0) g/dL RDW 12.6 (12.1-15.1) % Plt Count 205 (130-400) 10^3/c mm MPV 10.2 (7.4-10.4) fL Neut % (Auto) 61.5 % Lymph % (Auto) 30.6 % [place] % (Auto) 5.8 % Eos % (Auto) 1.3 % Baso % (Auto) 0.4 % Neut # (Auto) 6.85 (1.8-7.7) 10^3/u L Lymph # (Auto) 3.4 (0.8-4.8) 10^3/u L [place] # (Auto) 0.7 (0.2-0.9) 10^3/u L Eos # (Auto) 0.2 (0.0-0.8) 10^3/u L Baso # (Auto) 0.1 (0.0-0.1) 10^3/u L Nucleated RBC % (a uto) 0 % Nucleated RBCs # 0.0 /100WBC Sodium 141 (136-145) mmol/L Potassium 4.0 (3.5-5.1) mmol/L Chloride 105 (98-107) mmol/L Carbon Dioxide 26 (22-29) mmol/L Anion Gap 14.0 (5-19) BUN 19 (6-20) mg/dL Creatinine 0.8 (0.7-1.2) mg/dL GFR Calculation 116.0 (90-130) mL/min Glucose 94 (65-115) mg/dL Calculated Osmolal ity 294 (285-295) mOsm/k g Calcium 8.7 (8.5-10.5) mg/dL Total Bilirubin 0.2 (0.15-1.2) mg/dL AST 18 (0-40) U/L ALT 27 (0-41) U/L Alkaline Phosphata se 50 (40-130) IU/L Total Protein 6.7 (6.6-8.7) g/dL Albumin 4.4 (3.5-5.2) g/dL Globulin 2.3 (1.3-4.6) g/dL Lipase 35 (13-60) U/L Urine Color Yellow (Yellow) Urine Appearance Clear (CLEAR) Urine pH 7 (5-7) Ur Specific Gravit y 1.005 (1.005-1.030) Urine Protein Neg (Negative) Urine Glucose (UA) Norm (Normal) Urine Ketones Negative (Negative) Urine Blood Neg (Negative) Urine Nitrate Negative (Negative) Urine Bilirubin Neg (Negative) Urine Urobilinogen Norm (Negative) mg/dL Ur Leukocyte Marleny ase Negative (Negative) Imaging Data ^: CT Abd/Pel: Attestation: I personally reviewed and interpreted this imaging study as follows: Radiologist's impression: [address] [place] [address] CT Scan Report Signed Patient: Reilly Guthrie Unit #: [id number] : 1995 Age/Sex: 25 / M ADM Date: 09/26/20 Loc: ER Room/Bed: Attending Dr: Ordering Provider/Ordering MD: Julito Baker MD Date of Service: 09/26/20 Procedure(s): CT abdomen pelvis w con* [id number] Accession Number(s): [id number] Report Number: [id number] PROCEDURE INFORMATION: Exam: CT Abdomen And Pelvis With Contrast Exam date and time: 09/26/2020 11:36 PM Age: 25 years old Clinical indication: Abdominal pain; Localized; Right lower quadrant (rlq); Additional info: Abd pain TECHNIQUE: Imaging protocol: Computed tomography of the abdomen and pelvis with contrast. Radiation optimization: All CT scans at this facility use at least one of these dose optimization techniques: automated exposure control; mA and/or kV adjustment per patient size (includes targeted exams where dose is matched to clinical indication); or iterative reconstruction. Contrast material: OMNI 300; Contrast volume: 95 ml; Contrast route: INTRAVENOUS (IV); COMPARISON: No relevant prior studies available. RADIATION DOSE METRICS: Total DLP (mGy-cm): 1857.3 FINDINGS: Liver: Normal. No mass. Gallbladder and bile ducts: Normal. No calcified stones. No ductal dilation. Pancreas: Normal. No ductal dilation. Spleen: Normal. No splenomegaly. Adrenal glands: Normal. No mass. Kidneys and ureters: Normal. No hydronephrosis. Stomach and bowel: The stomach is filled with food. The terminal ileum and small bowel are normal. Appendix: The appendix is short and unremarkable. Intraperitoneal space: No free fluid or mesenteric edema. Vasculature: Unremarkable. No abdominal aortic aneurysm. Lymph nodes: Unremarkable. No enlarged lymph nodes. Urinary bladder: Unremarkable as visualized. Reproductive: Unremarkable as visualized. Bones/joints: Unremarkable. No acute fracture. Soft tissues: Unremarkable. CT/CT abdomen pelvis w con* [id number] IMPRESSION: No significant findings. Radiation Dose CTDIVOL = (mGy): DLP = 1857.3 (mGy-cm) Discharge Plan Discharge Patient Disposition: Home Clinical Impression: Abdominal pain Qualifiers: Abdominal location: generalized Qualified Code(s): R10.84 - Generalized abdominal pain Condition: Stable Prescriptions: New Naprosyn 500 mg tablet 500 mg PO BID PRN (Reason: pain) Qty: 20 RF: 0 No Action Adderall 30 mg Tablet 30 mg PO BID RF: 0 alprazolam [Xanax] 2 mg Tablet 1 mg PO BID PRN (Reason: Anxiety) RF: 0 aripiprazole 10 mg Tablet 15 mg PO DAILY 30 Days Qty: 45 RF: 1 Discharge Orders: Discharge ED (Routine); Ordered 09/27/20 Ordered By: Julito Baker Discharge Diet: Advance as tolerated Discharge Activity: Resume usual activity Patient Instructions: Abdominal Pain (ED) Coding Level of Care Code ED Fixed Wing Aircraft Flight Engineer for Salomon Fwd Exam Comprehensive
[2020-09-26 23:48] LABS: Basophils # 0.1 10^3/uL (0.0-0.1); Basophils % 0.4 %; Eosinophils # 0.2 10^3/uL (0.0-0.8); Eosinophils % 1.3 %; Hematocrit 44.7 % (42.0-52.0); Hemoglobin 14.8 g/dL (11.7-16.6); Lymphocytes # 3.4 10^3/uL (0.8-4.8); Lymphocytes % 30.6 %; Mean Corpuscular HGB Conc 33.1 g/dL (30.0-36.0); Mean Corpuscular Volume 90.7 fL (80-94); Mean Platelet Volume 10.2 fL (7.4-10.4); Monocytes # 0.7 10^3/uL (0.2-0.9); Monocytes % 5.8 %; Neutrophils # 6.85 10^3/uL (1.8-7.7); Neutrophils % 61.5 %; Nucleated Red Blood Cells % 0 %; Platelet Count 205 10^3/cmm (130-400); Red Blood Count 4.93 10^6/uL (4.1-5.3); Red Cell Distribution Width 12.6 % (12.1-15.1); White Blood Count 11.2 10^3/uL (4.0-10.0)
[2020-09-26] MEDS: sodium chloride 0.9% 1,000 ML 999 ML IV (23:49)
[2020-09-27 00:03] VITALS: RESP 16
[2020-09-27] MEDS: morphine 4 mg/mL SDV 1 mL IVP (00:03)
[2020-09-27 00:04] LABS: Alanine Aminotransferase 27 U/L (0-41); Albumin Level 4.4 g/dL (3.5-5.2); Alkaline Phosphatase 50 IU/L (40-130); Aspartate Amino Transferase 18 U/L (0-40); Blood Urea Nitrogen 19 mg/dL (6-20); Calcium 8.7 mg/dL (8.5-10.5); Carbon Dioxide 26 mmol/L (22-29); Chloride 105 mmol/L (98-107); Globulin 2.3 g/dL (1.3-4.6); Glucose 94 mg/dL (65-115); Lipase 35 U/L (13-60); Osmolality Calculated 294 mOsm/kg (285-295); Sodium 141 mmol/L (136-145); Total Bilirubin 0.2 mg/dL (0.15-1.2); Total Protein 6.7 g/dL (6.6-8.7)
[2020-09-27] MEDS: iohexol 300 mg/mL 100 mL Btl IV (00:06)
[2020-09-27 00:55] VITALS: BP 128/84; PULSE 106; RESP 19; O2SAT 98
[2020-09-27 01:13] LABS: Add Urine Microscopic? NO; Charge for UA Resulting for Rev
[2020-09-27 01:14] LABS: Bilirubin Urine Neg (Negative); Blood Urine Neg (Negative); Glucose Urine UA Norm (Normal); Ketones Urine Negative (Negative); Leukocyte Esterase Urine Negative (Negative); Nitrate Urine Negative (Negative); Protein Urine Neg (Negative); Specific Gravity, Urine 1.005 (1.005-1.030); Urine Appearance Clear (CLEAR); Urine Color Yellow (Yellow); Urobilinogen Urine Norm (Negative); pH Urine 7 (5-7)
[2020-09-27 01:35] VITALS: PULSE 108; RESP 16; O2SAT 98
== END 2020-09-27 01:36 | disposition home or self-care (01) ==
PROVIDERS: Emergency Provider Emergency Medicine
DX: R10.84 Generalized abdominal pain (principal)
CPT/HCPCS: 74177; 80053; 81003; 83690; 85025; 96361; 96374; 99284; J2270; J7030; Q9967